=== PATIENT | male | born 1990 | race Hispanic/Latino ===

== ENCOUNTER 2020-05-14 16:56 | Emergency (ER) | payer SELFPAY ==
[2020-05-14] MEDS ORDERED: LORazepam 2 MG/ML VIAL IM ONE (17:57)
[2020-05-14] MEDS ORDERED: ZIPRASIDONE MESYLATE 20 MG VIAL IM ONE (17:57)
--- NOTE | 2020-05-14 17:59 | Emergency Department Report ---
<WILLARD RAYO - Last Filed: 05/16/20 11:48> ED Psych HPI - General Chief Complaint: Psych Stated Complaint: SI Time Seen by Provider: 05/14/20 17:36 - Related Data Home Medications Medication Instructions Recorded Confirmed Last Taken No Known Home Medications [No 05/14/20 05/14/20 Unknown Reported Home Medications] Allergies Allergy/AdvReac Type Severity Reaction Status Date / Time No Known Allergies Allergy Unverified 05/14/20 17:22 ED Past Medical Hx - Medications Home Medications: Home Medications Medication Instructions Recorded Confirmed Last Taken Type No Known Home Medications [No 05/14/20 05/14/20 Unknown History Reported Home Medications] ED Medical Decision Making - Lab Data Result diagrams: 05/14/20 19:20 05/14/20 19:20 - Medical Decision Making Patient has been accepted to [facility]. ED Disposition Clinical Impression: Suicide attempt, Amphetamine abuse, Medical clearance for psychiatric admission, Substance induced mood disorder, Psychoactive substance-induced mood disorder Disposition: [id number]/TX-[id number] PSY HOSP/PSY UNIT Is pt being admited?: No Does the pt Need Aspirin: No Condition: Stable Referrals: PRIMARY CARE, [Primary Care Provider] - 3-5 Days Time of Disposition: 11:49 <VENECIA MITCHELL - Last Filed: 05/18/20 19:01> ED Psych HPI - General Source: patient, EMS Mode of arrival: Stretcher Limitations: No Limitations - History of Present Illness Initial Comments: 29-year-old male with no significant past medical history presents to the [facility] with suicidal attempt. Patient states he got in a fight with his girlfriend and she left the house and took the children away. He turned the car 1 in the garage and attempt to induce car monoxide poisoning but states he did not stay in the garage long. He then tied a rope around his neck and states that he did not hang the rope from anything. He presents with ligature castorena around his neck. Patient has been feeling suicidal x1 day since the fight with his girlfriend. The girlfriend apparently called the paramedics. Patient states he is fine and he is ready to go home and is not cooperative or receptive to changing into a gown, providing urine, or providing labs. He denies any pain, psychosis, daily alcohol use, or illicit substance use besides marijuana. ED Review of Systems ROS: Stated complaint: SI Other details as noted in HPI Comment: All other systems reviewed and negative ED Past Medical Hx - Past Medical History Previous Medical History?: No - Surgical History Past Surgical History?: No - Social History Smoking Status: Current Every Day Smoker Substance Use Type: Alcohol, Marijuana ED Physical Exam - General Limitations: No Limitations - Other Other exam information: General: No acute distress Head: Atraumatic Eyes: normal appearance ENT: Moist mucous membranes Neck: Ligature castorena around neck, no crepitus Chest: Clear to auscultation bilaterally CV: Regular rate and rhythm Abdomen: Soft, normal bowel sounds, nontender, nondistended, no rebound or guarding Back: Normal inspection Extremity: Normal inspection, full range of motion Neuro: Alert O x 3, no facial asymmetry, speech clear, no gross motor sensory deficit Psych: Answers questions appropriately Skin: No rash ED Course Vital Signs 05/14/20 05/14/20 05/15/20 17:14 20:05 01:53 Temperature 98.2 F 98.0 F 98.1 F Pulse Rate 111 H 98 H 82 Respiratory 17 18 16 Rate Blood Pressure 133/91 124/79 126/84 [Right] O2 Sat by Pulse 100 100 100 Oximetry 05/15/20 05/15/20 05/15/20 09:00 15:51 19:50 Temperature 97.9 F 98.6 F 98.5 F Pulse Rate 94 H 87 89 Respiratory 20 18 16 Rate Blood Pressure 125/76 121/77 96/53 [Right] O2 Sat by Pulse 97 97 Oximetry 05/15/20 05/15/20 05/16/20 19:55 20:29 02:00 Temperature 98.4 F Pulse Rate 85 96 H Respiratory 16 18 18 Rate Blood Pressure 135/76 109/70 [Right] O2 Sat by Pulse 95 98 Oximetry 05/16/20 07:35 Temperature 97.6 F Pulse Rate 83 Respiratory 20 Rate Blood Pressure 109/66 [Right] O2 Sat by Pulse 100 Oximetry - Reevaluation(s) Reevaluation #1: 05/14/20 17:58 pt is uncooperative with putting on green gown, providing labs, and providing urine. He is a 1013 for SI with attempt x 2 today. Pt will need to be sedated for cooperation, patient safety, and staff safety. Pt also refused to speak to mental health prior to sedation 05/14/20 20:17 ABG does not reveal any carboxy hemoglobin increase, hypoxia, or acid-base disturbance, other labs unremarkable with UA and UDS pending at this time ED Medical Decision Making - Lab Data Result diagrams: 05/14/20 19:20 05/14/20 19:20 Lab Results 05/14/20 05/14/20 05/14/20 Range/Units 19:20 19:20 19:20 WBC 9.4 (4.5-11.0) K/mm3 RBC 5.63 H (3.65-5.03) M/mm3 Hgb 17.2 H (11.8-15.2) gm/dl Hct 50.3 H (35.5-45.6) % MCV 89 (84-94) fl MCH 31 (28-32) pg MCHC 34 (32-34) % RDW 14.2 (13.2-15.2) % Plt Count 290 (140-440) K/mm3 Lymph % (Auto) 20.7 (13.4-35.0) % Shoshone % (Auto) 4.8 (0.0-7.3) % Eos % (Auto) 0.5 (0.0-4.3) % Baso % (Auto) 0.4 (0.0-1.8) % Lymph # 1.9 (1.2-5.4) K/mm3 Shoshone # 0.5 (0.0-0.8) K/mm3 Eos # 0.0 (0.0-0.4) K/mm3 Baso # 0.0 (0.0-0.1) K/mm3 Seg Neutrophils % 73.6 H (40.0-70.0) % Seg Neutrophils # 6.9 (1.8-7.7) K/mm3 ABG pH (7.350-7.450) pH Units ABG pCO2 mm Hg ABG pO2 (80.0-90.0) mm Hg ABG HCO3 (20.0-26.0) mmol/L ABG O2 Saturation (95.0-99.0) % ABG O2 Content (0.0-44) ABG Base Excess (-2.0-3.0) mmol/L ABG Hemoglobin (14.0-18.0) gm/dl ABG Carboxyhemoglobin (0.0-5.0) % ABG Methemoglobin (0.0-1.5) % Oxyhemoglobin (95.0-99.0) % FiO2 % Sodium 142 (137-145) mmol/L Potassium 4.1 (3.6-5.0) mmol/L Chloride 102.0 (98-107) mmol/L Carbon Dioxide 23 (22-30) mmol/L Anion Gap 21 mmol/L BUN 8 L (9-20) mg/dL Creatinine 0.7 L (0.8-1.5) mg/dL Estimated GFR > 60 ml/min BUN/Creatinine Ratio 11 % Glucose 77 (75-100) mg/dL Calcium 9.4 (8.4-10.2) mg/dL Total Bilirubin 0.50 (0.1-1.2) mg/dL AST 15 (5-40) units/L ALT 23 (7-56) units/L Alkaline Phosphatase 85 (35-129) units/L Total Protein 8.0 (6.3-8.2) g/dL Albumin 4.5 (3.9-5) g/dL Albumin/Globulin Ratio 1.3 % Urine Color (Yellow) Urine Turbidity (Clear) Urine pH (5.0-7.0) Ur Specific Verdi (1.003-1.030) Urine Protein (Negative) mg/dL Urine Glucose (UA) (Negative) mg/dL Urine Ketones (Negative) mg/dL Urine Blood (Negative) Urine Nitrite (Negative) Urine Bilirubin (Negative) Urine Urobilinogen (<2.0) mg/dL Ur Leukocyte Esterase (Negative) Urine WBC (Auto) (0.0-6.0) /HPF Urine RBC (Auto) (0.0-6.0) /HPF Urine Bacteria (Auto) (Negative) /HPF Urine Mucus /HPF Salicylates < 0.3 L (2.8-20.0) mg/dL Urine Opiates Screen Urine Methadone Screen Acetaminophen (10.0-30.0) ug/mL Ur Barbiturates Screen Ur Phencyclidine Scrn Ur Amphetamines Screen U Benzodiazepines Scrn Urine Cocaine Screen U Marijuana (THC) Screen Drugs of Abuse Note Plasma/Serum Alcohol (0-0.07) % 05/14/20 05/14/20 05/14/20 Range/Units 19:20 19:20 20:00 WBC (4.5-11.0) K/mm3 RBC (3.65-5.03) M/mm3 Hgb (11.8-15.2) gm/dl Hct (35.5-45.6) % MCV (84-94) fl MCH (28-32) pg MCHC (32-34) % RDW (13.2-15.2) % Plt Count (140-440) K/mm3 Lymph % (Auto) (13.4-35.0) % Shoshone % (Auto) (0.0-7.3) % Eos % (Auto) (0.0-4.3) % Baso % (Auto) (0.0-1.8) % Lymph # (1.2-5.4) K/mm3 Shoshone # (0.0-0.8) K/mm3 Eos # (0.0-0.4) K/mm3 Baso # (0.0-0.1) K/mm3 Seg Neutrophils % (40.0-70.0) % Seg Neutrophils # (1.8-7.7) K/mm3 ABG pH 7.371 (7.350-7.450) pH Units ABG pCO2 41.5 mm Hg ABG pO2 85.1 (80.0-90.0) mm Hg ABG HCO3 23.5 (20.0-26.0) mmol/L ABG O2 Saturation 96.7 (95.0-99.0) % ABG O2 Content 21.8 (0.0-44) ABG Base Excess -1.7 (-2.0-3.0) mmol/L ABG Hemoglobin 16.7 (14.0-18.0) gm/dl ABG Carboxyhemoglobin 3.9 (0.0-5.0) % ABG Methemoglobin 0.6 (0.0-1.5) % Oxyhemoglobin 92.4 L (95.0-99.0) % FiO2 21 % Sodium (137-145) mmol/L Potassium (3.6-5.0) mmol/L Chloride (98-107) mmol/L Carbon Dioxide (22-30) mmol/L Anion Gap mmol/L BUN (9-20) mg/dL Creatinine (0.8-1.5) mg/dL Estimated GFR ml/min BUN/Creatinine Ratio % Glucose (75-100) mg/dL Calcium (8.4-10.2) mg/dL Total Bilirubin (0.1-1.2) mg/dL AST (5-40) units/L ALT (7-56) units/L Alkaline Phosphatase (35-129) units/L Total Protein (6.3-8.2) g/dL Albumin (3.9-5) g/dL Albumin/Globulin Ratio % Urine Color (Yellow) Urine Turbidity (Clear) Urine pH (5.0-7.0) Ur Specific Verdi (1.003-1.030) Urine Protein (Negative) mg/dL Urine Glucose (UA) (Negative) mg/dL Urine Ketones (Negative) mg/dL Urine Blood (Negative) Urine Nitrite (Negative) Urine Bilirubin (Negative) Urine Urobilinogen (<2.0) mg/dL Ur Leukocyte Esterase (Negative) Urine WBC (Auto) (0.0-6.0) /HPF Urine RBC (Auto) (0.0-6.0) /HPF Urine Bacteria (Auto) (Negative) /HPF Urine Mucus /HPF Salicylates (2.8-20.0) mg/dL Urine Opiates Screen Urine Methadone Screen Acetaminophen < 5.0 L (10.0-30.0) ug/mL Ur Barbiturates Screen Ur Phencyclidine Scrn Ur Amphetamines Screen U Benzodiazepines Scrn Urine Cocaine Screen U Marijuana (THC) Screen Drugs of Abuse Note Plasma/Serum Alcohol 0.05 (0-0.07) % 05/14/20 05/14/20 Range/Units Unknown Unknown WBC (4.5-11.0) K/mm3 RBC (3.65-5.03) M/mm3 Hgb (11.8-15.2) gm/dl Hct (35.5-45.6) % MCV (84-94) fl MCH (28-32) pg MCHC (32-34) % RDW (13.2-15.2) % Plt Count (140-440) K/mm3 Lymph % (Auto) (13.4-35.0) % Shoshone % (Auto) (0.0-7.3) % Eos % (Auto) (0.0-4.3) % Baso % (Auto) (0.0-1.8) % Lymph # (1.2-5.4) K/mm3 Shoshone # (0.0-0.8) K/mm3 Eos # (0.0-0.4) K/mm3 Baso # (0.0-0.1) K/mm3 Seg Neutrophils % (40.0-70.0) % Seg Neutrophils # (1.8-7.7) K/mm3 ABG pH (7.350-7.450) pH Units ABG pCO2 mm Hg ABG pO2 (80.0-90.0) mm Hg ABG HCO3 (20.0-26.0) mmol/L ABG O2 Saturation (95.0-99.0) % ABG O2 Content (0.0-44) ABG Base Excess (-2.0-3.0) mmol/L ABG Hemoglobin (14.0-18.0) gm/dl ABG Carboxyhemoglobin (0.0-5.0) % ABG Methemoglobin (0.0-1.5) % Oxyhemoglobin (95.0-99.0) % FiO2 % Sodium (137-145) mmol/L Potassium (3.6-5.0) mmol/L Chloride (98-107) mmol/L Carbon Dioxide (22-30) mmol/L Anion Gap mmol/L BUN (9-20) mg/dL Creatinine (0.8-1.5) mg/dL Estimated GFR ml/min BUN/Creatinine Ratio % Glucose (75-100) mg/dL Calcium (8.4-10.2) mg/dL Total Bilirubin (0.1-1.2) mg/dL AST (5-40) units/L ALT (7-56) units/L Alkaline Phosphatase (35-129) units/L Total Protein (6.3-8.2) g/dL Albumin (3.9-5) g/dL Albumin/Globulin Ratio % Urine Color Evelina (Yellow) Urine Turbidity Cloudy (Clear) Urine pH 5.0 (5.0-7.0) Ur Specific Verdi 1.030 (1.003-1.030) Urine Protein <15 mg/dl (Negative) mg/dL Urine Glucose (UA) 50 (Negative) mg/dL Urine Ketones 20 (Negative) mg/dL Urine Blood Neg (Negative) Urine Nitrite Neg (Negative) Urine Bilirubin Neg (Negative) Urine Urobilinogen 2.0 (<2.0) mg/dL Ur Leukocyte Esterase Tr (Negative) Urine WBC (Auto) 14.0 H (0.0-6.0) /HPF Urine RBC (Auto) 4.0 (0.0-6.0) /HPF Urine Bacteria (Auto) 1+ (Negative) /HPF Urine Mucus 3+ /HPF Salicylates (2.8-20.0) mg/dL Urine Opiates Screen Presumptive negative Urine Methadone Screen Presumptive negative Acetaminophen (10.0-30.0) ug/mL Ur Barbiturates Screen Presumptive negative Ur Phencyclidine Scrn Presumptive negative Ur Amphetamines Screen Presumptive positive U Benzodiazepines Scrn Presumptive negative Urine Cocaine Screen Presumptive negative U Marijuana (THC) Screen Presumptive negative Drugs of Abuse Note Disclamer Plasma/Serum Alcohol (0-0.07) % Critical Care Time: No Critical care attestation.: If time is entered above; I have spent that time in minutes in the direct care of this critically ill patient, excluding procedure time. ED Disposition Is pt being admited?: No
[2020-05-14] MEDS ORDERED: WATER FOR INJ Sterile (PF) 10 ML ONE (18:13)
[2020-05-14 19:48] LABS: Basophils % (Auto) 0.4 % (0.0-1.8); Eosinophils % (Auto) 0.5 % (0.0-4.3); Hematocrit 50.3 % (35.5-45.6); Hemoglobin 17.2 gm/dl (11.8-15.2); Lymphocytes # (Auto) 1.9 K/mm3 (1.2-5.4); Lymphocytes % (Auto) 20.7 % (13.4-35.0); Mean Corpuscular HGB Conc 34 % (32-34); Mean Corpuscular Volume 89 fl (84-94); Monocytes # (Auto) 0.5 K/mm3 (0.0-0.8); Monocytes % (Auto) 4.8 % (0.0-7.3); Platelet Count 290 K/mm3 (140-440); Red Blood Count 5.63 M/mm3 (3.65-5.03); Red Cell Distribution Width 14.2 % (13.2-15.2)
[2020-05-14 20:08] LABS: Alanine Aminotransferase 23 units/L (7-56); Albumin 4.5 g/dL (3.9-5); BUN/Creatinine Ratio 11; Blood Urea Nitrogen 8 mg/dL (9-20); Calcium 9.4 mg/dL (8.4-10.2); Hemolysis Index 6
[2020-05-14 20:10] LABS: ABG Base Excess -1.7 mmol/L (-2.0-3.0); ABG HCO3 23.5 mmol/L (20.0-26.0); ABG Methemoglobin 0.6 % (0.0-1.5); ABG Oxygen Saturation 96.7 % (95.0-99.0); ABG PCO2 41.5 mm Hg; ABG PH 7.371 pH Units (7.350-7.450); ABG PO2 85.1 mm Hg (80.0-90.0)
[2020-05-15 08:53] LABS: Bacteria,Urine 1+ /HPF (Negative); Bilirubin,Urine NEG (Negative); Blood,Urine NEG (Negative); Color,Urine Amber (Yellow); Mucus,Urine 3+ /HPF; Protein,Urine <15 mg/dL mg/dL (Negative)
[2020-05-15 09:01] LABS: Benzodiazepines Screen,Urine PRESUMPTIVE NEGATIVE; Cannabinoid Screen,Urine PRESUMPTIVE NEGATIVE; Cocaine Screen,Urine PRESUMPTIVE NEGATIVE; Methadone Screen,Urine PRESUMPTIVE NEGATIVE; Opiate Screen,Urine PRESUMPTIVE NEGATIVE
[2020-05-15 09:18] LABS: Amphetamine Screen,Urine PRESUMPTIVE POSITIVE
[2020-05-15] MEDS ORDERED: NICOTINE 21 MG/24 HR PATCH TD ONE (17:51)
[2020-05-16 07:36] VITALS: BP 109/66
--- NOTE | 2020-05-16 10:02 | Consultation ---
History of Present Illness - Reason for Consult Consult date: 05/16/20 Reason for consult: MHE Requesting physician: VENECIA MITCHELL - Chief Complaint Chief complaint: SI with attempt - History of Present Psychiatric Illness Per ED Provider: 29-year-old male with no significant past medical history presents to the hospital with suicidal attempt. Patient states he got in a fig ht with his girlfriend and she left the house and took the children away. He turned the car 1 in the garage and attempt to induce car monoxide poisoning but states he did not stay in the garage long. He then tied a rope around his neck and states that he did not hang the rope from anything. He presents with ligature castorena around his neck. Patient has been feeling suicidal x1 day since the fight with his girlfriend. The girlfriend apparently called the paramedics. Patient states he is fine and he is ready to go home and is not cooperative or receptive to changing into a gown, providing urine, or providing labs. He denies any pain, psychosis, daily alcohol use, or illicit substance use besides marijuana. PSYCH HPI Patient is a 29-year-old single employed male with no past psychiatric history or past medical history who was presented to the ER on 1012 accompanied by the police department with complaint of suicidal ideation with attempt. Patient reported he has been having issues with partner and have been nagging all the time reports most recently she found out that she he had cheated on her a couple of months ago which intensifies argument with her prompting her to leave his current residence while also taking the daughter along with her to go live with her parents. Patient reported this incident distorted him, made him more depressed and was trying to seek attention by telling her that he plan to commit suicide. Patient reported that he did leave his car only in the garage, and had a rope with him when he was found endorse alcohol consumption during time of incidence with most recent use of meth. Patient reports she is the only social support that he has in the state of [place] and mom currently lives in another state. Patient reported that he did not know that things went up like this if he had no better he would have done what he did and that there is no excuse for his actions. PAST PSYCHIATRIC HISTORY Diagnoses: None reported Suicide attempts or Self-harm behavior: Yes most recent Prior psychiatric hospitalizations: None reported Substance Abuse history: Cocaine meths alcohol marijuana Previous psychiatric medications tried: None reported Outpatient treatment: None reported PAST MEDICAL HISTORY: None reported Family Psychiatric History: None reported or documented SOCIAL HISTORY Marital Status: Single Living Arrangements: Lives with partner Employment Status: Employed Access to guns/weapons: None reported Education: College graduate History of Abuse: None reported Legal History: None reported REVIEW OF SYSTEMS Constitutional: Negative for weight loss ENT: Negative for stridor Respiratory: Negative for cough or hemoptysis All other systems reviewed and are negative MENTAL STATUS EXAMINATION General Appearance and Behavior: Age appropriate, good hygiene, wearing appropriate clothes, good eye contact, cooperative irritable with questioning. Cooperation: Participating/engaged, Hostile and Guarded Psychomotor Behavior: unremarkable and within normal limits Mood: Good Affect and affective range: Angry Thought Process: Fluent/Logical Thought Content: Within reality Speech: Normal volume, Regular rate and rhythm Intellectual Functioning: Average Suicidal Ideation: Passive Homicidal Ideation: Denies HI Impulse Control: Unimpaired Insight and Judgment: Normal insight and judgment Memory: Normal. Attention: Normal Orientation: Alert, oriented. Assessment and Plan - Psychiatric problem (1) Substance induced mood disorder Current Visit: Yes Status: Acute (2) Psychoactive substance-induced mood disorder Current Visit: Yes Status: Acute (3) MDD (major depressive disorder) Current Visit: Yes Status: Acute RECOMMENDATIONS Patient is high risk for both SI and HI based on social factors and recent incident that happened at home that could lead to potential motor suicide if patient is discharged early without any psychotherapy or pharmacological intervention. Offered to start medication in the ER but patient said it does not believe medication would help him because he feels it is not needed. MEDICATIONS: Risks, benefits and alternatives of medications discussed with the patient, questions answered and consent obtained from patient. PSYCHOTHERAPY: Supportive psychotherapy provided MEDICAL: Per primary team DELIRIUM PRECAUTIONS: Please re-orient patient frequently, keep lights on during the day, and minimize benzodiazepines and opiates as these medications could wor sen patient's confusion. 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 Please contact with any questions and/or concerns. Medications and Allergies Allergies Allergy/AdvReac Type Severity Reaction Status Date / Time No Known Allergies Allergy Unverified 05/14/20 17:22 Home Medications Medication Instructions Recorded Confirmed Last Taken Type No Known Home Medications [No 05/14/20 05/14/20 Unknown History Reported Home Medications] Mental Status Exam - Vital signs Last Vital Signs Temp 97.6 F 05/16/20 07:35 Pulse 83 05/16/20 07:35 Resp 20 05/16/20 07:35 BP 109/66 05/16/20 07:35 Pulse Ox 100 05/16/20 07:35 Results Result Diagrams: 05/14/20 19:20 05/14/20 19:20 All other labs normal. Assessment and Plan - Psychiatric problem (1) Substance induced mood disorder Current Visit: Yes Status: Acute (2) Psychoactive substance-induced mood disorder Current Visit: Yes Status: Acute (3) MDD (major depressive disorder) Current Visit: Yes Status: Acute
== END 2020-05-16 12:36 ==
LOC: EEVIPCON 16:56 → ED 16:56
DX: T14.91XA Suicide attempt, initial encounter (principal); F19.14 Other psychoactive substance abuse with psychoactive substance-induced mood disorder; F15.10 Other stimulant abuse, uncomplicated; Z79.899 Other long term (current) drug therapy; Y92.89 Other specified places as the place of occurrence of the external cause
CPT/HCPCS: 36415; 80053; 80307; 81001; 82803; 85025; 87086; 96372; 99285; J2060; J3486; 80320; G0480